=== PATIENT | female | born 1955 | race Two or more races ===

== ENCOUNTER → 2024-10-06 | Outpatient (CLI) | payer MEDICARE, MEDICAID, SELFPAY ==
[2024-10-06 08:58] LABS: Glucose Estimated Average 272 mg/dL (80-131); Hemoglobin A1C 11.1 % Hgb (4.8-6.0)
[2024-10-06 09:05] LABS: Basophils % (Auto) 0 % (0-2.5); Eosinophils # (Auto) 0.1 Thou/mm3 (0.0-0.5); Eosinophils % (Auto) 1 % (0-10); Hematocrit 40.9 % (36.0-46.0); Hemoglobin 14.1 g/dL (12.0-16.0); Immature Granulocytes % (Auto) 0 % (0-0); Immature Granulocytes Auto 0.01 Thou/mm3 (0.00-0.00); Lymphocytes # (Auto) 2.6 Thou/mm3 (1.0-4.8); Lymphocytes % (Auto) 48 % (10-50); Mean Corpuscular HGB Conc 34.5 g/dl (31.0-37.0); Mean Corpuscular Hemoglobin 31.8 pg (25.0-35.0); Mean Corpuscular Volume 92 fL (80-100); Monocytes # (Auto) 0.4 Thou/mm3 (0.0-0.8); Monocytes % (Auto) 7 % (0-12); Neutrophils # (Auto) 2.4 Thou/mm3 (1.8-7.7); Neutrophils % (Auto) 43 % (37-80); Nucleated Red Blood Cell % 0 /100 WBC (0); Platelet Count 164 Thou/mm3 (140-440); RDW Standard Deviation 43.1 fL (36.4-46.3); Red Blood Count 4.44 Miln/mm3 (4.00-5.20); White Blood Count 5.5 Thou/mm3 (3.6-11.0)
[2024-10-06 09:19] LABS: Alanine Aminotransferase 20 U/L (10-49); Albumin, Serum 4.1 gm/dL (3.4-4.8); Albumin/Globulin Ratio 1.9 (1.2-2.2); Alkaline Phosphatase 50 U/L (46-116); Anion Gap 9 (7-16); Aspartate Amino Transferase 15 U/L (0-34); BUN/Creatinine Ratio 20 Ratio (12-20); Blood Urea Nitrogen 12 mg/dL (9-23); Calcium 8.9 mg/dL (8.3-10.6); Calcium (Corrected) 8.9 mg/dL (8.5-10.1); Carbon Dioxide 28.7 mMol/L (20.0-31.0); Chloride 102 mMol/L (98-107); Creatinine (Component) 0.6 mg/dL (0.6-1.3); Globulin 2.2 gm/dL (2.3-3.5); Glucose 214 mg/dL (74-106); Osmolality,Calculated 285 (275-295); Sodium 140 mMol/L (136-145); Total Protein 6.3 gm/dL (5.7-8.2); eGFR > 60 See Note
== END | disposition home or self-care (01) ==
PROVIDERS: PCP Nurse Practitioner Family; Referring Provider Nurse Practitioner Family; Visit Provider Nurse Practitioner Family
DX: E11.65 Type 2 diabetes mellitus with hyperglycemia (principal)
CPT/HCPCS: 36415; 80053; 83036; 85025

== ENCOUNTER → 2024-10-20 | Outpatient (CLI) | payer MEDICARE, MEDICAID, SELFPAY ==
--- NOTE | 2024-10-20 10:46 | XR_ITS ---
Examination: PA lateral chest 2 views TECHNIQUE: Upright PA lateral chest 2 views Exam date and time: Every 2024 110 hours INDICATIONS: Coughing shortness of breath beginning 8 days ago. FINDINGS: No significant cardiac enlargement No pneumonia or pulmonary edema IMPRESSION: No pneumonia identified
== END | disposition home or self-care (01) ==
LOC: CDIM 10:40
PROVIDERS: Referring Provider Nurse Practitioner Family; Visit Provider Nurse Practitioner Family
DX: R05.9 Cough, unspecified (principal); R06.02 Shortness of breath
CPT/HCPCS: 71046

== ENCOUNTER → 2025-01-04 | Outpatient (CLI) | payer MEDICARE, MEDICAID, SELFPAY ==
[2025-01-04 13:01] LABS: Hepatitis C Antibody Non Reactive (Non React)
== END | disposition home or self-care (01) ==
LOC: COPL 10:08
PROVIDERS: PCP Family Medicine; Referring Provider Nurse Practitioner Family; Visit Provider Nurse Practitioner Family
DX: Z11.59 Encounter for screening for other viral diseases (principal)
CPT/HCPCS: 36415; 86803

== ENCOUNTER 2025-01-05 02:32 | Emergency (ER) | payer MEDICARE, MEDICAID, SELFPAY ==
[2025-01-05 02:33] VITALS: BMI 23.8
[2025-01-05 02:54] VITALS: BP 174/82; PULSE 72; RESP 18; TEMP 36.9; O2SAT 97
--- NOTE | 2025-01-05 03:08 | XR_ITS ---
EXAMINATION: Ankle, left 3 views . Technique: Ankle AP, oblique, lateral 3 views Date and time of exam: January 05, 2025 0322 hrs. Indications: Patient fell today with injury to the ankle, ankle pain. Findings: Suspicious for acute nondisplaced fractures distal tibia on the medial side No ankle dislocation Severe osteopenia Impression: Recommend CT scan ankle without contrast follow-up to exclude nondisplaced fractures distal tibia
--- NOTE | 2025-01-05 03:10 | PD.EDANKLE ---
Lower Extremity Injury RME/HPI General Chief Complaint: Ankle/Foot Injury Stated Complaint: L ANKLE PAIN Time Seen by Provider: 01/05/25 02:39 Arrival date/time: 01/05/25 02:32 69 year old female present to emergency room with c/o f left ankle injury today. LOCATION: ankle SEVERITY: Symptoms are described as being severe with limitations on activities of daily living QUALITY: Symptoms are described as being dull or achy CONTEXT: twisted ankle causing injury DURATION/TIMING: The symptoms started approximately 1 day ago and have been constant this then. ASSOCIATED SYMPTOMS: The patient is unable to identify any other associated symptoms. MODIFYING FACTORS: The patient is unable to identify any alleviating or aggravating symptoms. PERTINENT ROS: no fevers, no headache, no neck or chest pain, no unexplained nausea or vomiting, no focal neurological deficits REVIEW OF SYSTEMS: See History of Present Illness - with the exception of those mentioned in the history of present illness, all other systems reviewed and reported as negative GENERAL: In general the patient is awake, interactive, in an emergency department gurney. HEAD/EYES/EARS/NOSE/THROAT: normo-cephalic, atraumatic, mucus membranes are moist, anicteric, palpebral conjunctiva is pink, trachea is midline. NEUROLOGICAL: cranio-facial features are symmetric, moves all four extremities equally without obvious limitations or weakness. EXTREMITY: left lateral ankle tenderness and mild swelling no foot/posterior fib tenderness, no achillies tenderness, no tenderness to palpation over the long bones or large joints of the bilateral upper extremities, no joint swelling, no joint erythema, no unilateral leg swelling and no peripheral edema. SKIN: warm, dry, well-perfused, no jaundice, no rash, no telangiectasias or petechia. PSYCH: calm, cooperative, no evidence of psychosis or agitation Related Data Home Medications ?Medication ?Instructions ?Recorded ?Confirmed atorvastatin 20 mg tablet (Lipitor) 20 mg PO HS #0 tabs 08/28/16 06/09/24 sitagliptin phosphate 50 1 tab PO BIDWM #0 tabs 08/28/16 06/09/24 mg-metformin 1,000 mg tablet (Janumet) folic acid 1 mg tablet 1 tab PO QDAY ##90 08/30/16 06/09/24 metoprolol tartrate 100 mg tablet 100 mg PO QDAY ##180 08/30/16 06/09/24 montelukast 10 mg tablet 10 mg PO QDAY ##90 08/30/16 06/09/24 levothyroxine 50 mcg tablet 50 mcg PO QDAY 06/20/20 06/09/24 albuterol sulfate 90 mcg/actuation 2 puff inhalation Q6H PRN sob 11/17/20 06/09/24 aerosol inhaler (Ventolin HFA) glipizide 10 mg tablet 10 mg PO BID 11/17/20 06/09/24 ferrous sulfate 325 mg (65 mg 325 mg PO BID 11/15/22 06/09/24 iron) tablet losartan 50 mg-hydrochlorothiazide 1 tab PO QDAY 11/15/22 06/09/24 12.5 mg tablet Previous Rx's ?Medication ?Instructions ?Recorded meloxicam 7.5 mg tablet 7.5 mg PO QDAY #45 tabs 12/10/23 Allergies Allergy/AdvReac Type Severity Reaction Status Date / Time NKA* Allergy Uncoded 01/05/25 02:35 Course Course Course Narrative: Presentation consistent with ankle strain/sprain. Per [facility] Rules, acute fx could not ruled out so xrays were obtained.? Above radiographs orders without evidence of acute fracture. Provided RAY wrapping, crutches. Also provided prescription for Lortab to use as needed for pain. Patient may also use ibuprofen as needed for pain. Follow up with primary physician or sports medicine clinic if continued pain. Return to ED if pain uncontrolled, neurovascular change, or other concerns. xray: no acute findings, wet read, will be overead in the morning.? Plan:? ? Discharge from ED Wear air cast? as needed Crutches, weight bearing as tolerated Patient instructed on Rest, Ice, Compression, Elevation Follow up with PCP or Sports Medicine? Informed to return to emergency department if has new or worsening symptoms. Expressed understanding of and agreement with plan and all questions answered. Quality Measures none Orders Category Date Time Status ray wrap [Splint / Immobilizer] STAT Care 01/05/25 03:34 Active XR ankle comp LT min 3V Stat Exams 01/05/25 03:08 Taken Vital Signs Vital signs: Vital Signs Temperature 98.5 F 01/05/25 02:54 Pulse Rate 72 01/05/25 02:54 Respiratory Rate 18 01/05/25 02:54 Blood Pressure 174/82 H 01/05/25 02:54 Pulse Oximetry (%) 97 01/05/25 02:54 Oxygen Delivery Method Room Air 01/05/25 02:54 Extremity Injury, Lower Patient data External records reviewed:: [facility] previous records Clinical information provided by:: patient Social determinants that could affect healthcare access:: none Patient has the following chronic illnesses:: as stated in chart How is presenting disease/condition affected by chronic disease/condition?: uneffected by Evaluation data The following diagnostics were reviewed and interpreted by me:: radiology exam(s) Lab and/or radiology exams considered but not ordered:: na Interpretation Summary: as stated in course Medications / Prescriptions Medications or Prescriptions considered but not ordered:: n/a Medication administrations:: na Consultations Consultation(s) initiated? (list below): No Diagnosis Most likely diagnosis given after review of the tests above:: ankle sprain Admission Indicated Admission indicated?: not indicated Admission Request Was there a request for admission?: No Disposition Plan Disposition Plan: Discharge Discharge Attestation Discharge Attestation: The patient and all family members were given an opportunity to ask questions and understood the discharge instructions. Discharge instructions specifically effects, indications for sooner follow up or return to the emergency department, and the expected course of current diagnosis. Patient condition: Stable Discharge Plan Plan Patient Disposition: HOME (Self Care) Prescriptions/Referrals Prescriptions/Med Rec: No Action losartan-hydrochlorothiazide 50-12.5 mg tablet 1 tab PO QDAY ferrous sulfate 325 mg (65 mg iron) tablet 325 mg PO BID meloxicam 7.5 mg tablet 7.5 mg PO QDAY Qty: 45 3RF atorvastatin [Lipitor] 20 MG tablet 20 mg PO HS Qty: 0 Janumet 50-1,000 mg Tablet 1 tab PO BIDWM Qty: 0 metoprolol tartrate 100 MG tablet 100 mg PO QDAY Qty: 180 folic acid 1 MG tablet 1 tab PO QDAY Qty: 90 montelukast 10 mg Tablet 10 mg PO QDAY Qty: 90 levothyroxine 50 mcg tablet 50 mcg PO QDAY glipizide 10 mg tablet 10 mg PO BID albuterol sulfate [Ventolin HFA] 90 mcg/actuation Hfa Aerosol Inhaler 2 puff INHALATION Q6H PRN (Reason: sob) Problem List Clinical Impression: Sprain of ankle Patient/Caregiver Discharge Instructions Education Materials: ED Ankle Sprain (Adult) Print Language: Divehi Stand Alone Forms: [facility] Award Info., Patient Portal Info Letter
[2025-01-05] MEDS: IBUPROFEN TAB 600 MG TABLET PO (04:14)
--- NOTE | 2025-01-05 04:37 | PC.NURSE ---
Pt dc'd and had opportunity to speak with PA prior to DC. Pt expressed frustration that we do not have a walker for her to go home with. Pt also saying she has no one to help her at her house since her son works nights and sleeps during the day. Educated pt on hospital resources and why we cannot provide her with a walker. Offered to consult social scientist for pt but she declined. Had powerhouse oiler Jodie speak to pt as well.
--- NOTE | 2025-01-05 05:12 | PC.NURSE ---
Pt choosing to wait in lobby at this time. Encouraged pt to alert staff members if she needs social service manager or any assistance in getting home.
--- NOTE | 2025-01-05 06:13 | PC.NURSE ---
Pt's son came to ER to pick her up.
== END 2025-01-05 06:14 | disposition home or self-care (01) ==
LOC: SERX 04:26
PROVIDERS: Emergency Provider Emergency Medicine
DX: S93.402A Sprain of unspecified ligament of left ankle, initial encounter (principal); X50.1XXA Overexertion from prolonged static or awkward postures, initial encounter
CPT/HCPCS: 73610; 99283; A9270

== ENCOUNTER → 2025-01-06 | Outpatient (CLI) | payer MEDICARE, MEDICAID, SELFPAY ==
--- NOTE | 2025-01-06 11:48 | XR_ITS ---
Examination: CT left ankle, without contrast. 2-D sagittal reconstructions. 2-D coronal reconstructions. 3-D reconstructions. Date and time of exam:January 06, 2025 1233 hours INDICATIONS: Patient fell January 05, 2025 with injury to the ankle, ankle pain CTDI: vol (mGy):5.28 DLP: (mGycm):114 Technique: Multiple 1.25 mm axial sections of the left ankle without intravenous contrast have been obtained. 2-D sagittal and coronal reconstructions have been obtained. 3-D reconstructions have been obtained. Low dose protocols were performed. One or more of the following dose reduction techniques were used; automated exposure control, adjustment of the mA and/or KV according to patient size, use of iterative reconstruction technique. Findings: Small acute chip fractures off the fibular tip Distal tibia intact No ankle dislocation Talus calcaneus intact Acute fracture also base of the fifth metatarsal, mildly displaced 9 mm fracture fragment IMPRESSION: Small acute chip fractures off the fibular tip Acute mildly displaced fracture base fifth metatarsal
== END | disposition home or self-care (01) ==
PROVIDERS: PCP Nurse Practitioner Family; Referring Provider Nurse Practitioner Family; Visit Provider Nurse Practitioner Family
DX: S82.492A Other fracture of shaft of left fibula, initial encounter for closed fracture (principal); S92.352A Displaced fracture of fifth metatarsal bone, left foot, initial encounter for closed fracture; W19.XXXA Unspecified fall, initial encounter
CPT/HCPCS: 73700

== ENCOUNTER 2025-02-16 09:25 | Outpatient (AMB) | payer MEDICARE, MEDICAID, SELFPAY ==
[2025-02-16 09:48] VITALS: BP 172/82; PULSE 62; RESP 18; TEMP 36.5; O2SAT 91; BMI 24.5
--- NOTE | 2025-02-16 09:48 | PD.ORTHCLVIS ---
Vital signs 02/16/25 09:48 Height 1.57 m Height Method Stated Weight 60.328 kg Weight Measurement Method Standing Scale BMI 24.5 BP 172/82 H Blood Pressure Source Automatic Cuff Blood Pressure Location Left Upper Arm Position Sitting Respiration 18 Pulse 62 Pulse Source Monitor Temp 97.7 F Temp Source Temporal Artery Scan Pulse Oximetry (%) 91 L Oxygen Delivery Method Room Air Med/Allergies Allergies & Medications Allergies NKA* Allergy (Uncoded 02/16/25 09:49) Medication Reconciliation atorvastatin 20 mg tablet (Lipitor) 20 mg PO HS #0 tabs 08/28/16 [History Confirmed 02/16/25] sitagliptin phosphate 50 mg-metformin 1,000 mg tablet (Janumet) 1 tab PO BIDWM #0 tabs 08/28/16 [History Confirmed 02/16/25] folic acid 1 mg tablet 1 tab PO QDAY ##90 08/30/16 [History Confirmed 02/16/25] metoprolol tartrate 100 mg tablet 100 mg PO QDAY ##180 08/30/16 [History Confirmed 02/16/25] montelukast 10 mg tablet 10 mg PO QDAY ##90 08/30/16 [History Confirmed 02/16/25] levothyroxine 50 mcg tablet 50 mcg PO QDAY 06/20/20 [History Confirmed 02/16/25] albuterol sulfate 90 mcg/actuation aerosol inhaler (Ventolin HFA) 2 puff inhalation Q6H PRN sob 11/17/20 [History Confirmed 02/16/25] glipizide 10 mg tablet 10 mg PO BID 11/17/20 [History Confirmed 02/16/25] ferrous sulfate 325 mg (65 mg iron) tablet 325 mg PO BID 11/15/22 [History Confirmed 02/16/25] losartan 50 mg-hydrochlorothiazide 12.5 mg tablet 1 tab PO QDAY 11/15/22 [History Confirmed 02/16/25] meloxicam 7.5 mg tablet 7.5 mg PO QDAY #45 tabs 02/16/25 [Rx] Exam Exam Patient is in no acute distress and is cooperative with the examination today. Breathing is nonlabored. Patient has a normal mood and affect. The patient has a gait that is [nonantalgic] Bilateral extremities were evaluated and demonstrates sensation intact to light touch. Palpable pedal pulses are present. No significant edema is present. Bilateral hips were examined. The patient has no pain with log roll of the hips. Internal rotation to 30 degrees and external rotation to 30 degrees is painless. Negative FADIR. Right knee was examined today. The right knee is in reasonable alignment. Range of motion from 0-120 degrees. Knee is stable to varus and valgus as well as AP translation with <5mm. Patient has a negative McMurrays. There is no pain with patellofemoral compression and no crepitus noted. The knee is nontender to palpation. Left knee was examined today. The left knee is in [neutral] alignment. Range of motion from [0-120] degrees. Knee is stable to varus and valgus as well as AP translation with <5mm. Patient has a [negative] McMurrays. There is [no] pain with patellofemoral compression and [no] crepitus noted. The knee is [nontender] to palpation [diffusely]. X-rays demonstrate minimal joint space narrowing osteoarthritis. The patient also has an MRI. This demonstrates moderate thinning of her cartilage. There is also degenerative meniscal tear Assessment and Plan Problem List (1) Unilateral primary osteoarthritis, left knee: Status: Acute Plan: Patient is a pleasant 68-year-old female with left knee pain and left knee osteoarthritis. She has done well with nonoperative treatment. We will continue with conservative management. We will continue with meloxicam and will try cortisone injection if the pain does not get better We will see the patient back in approximately 1 week To go over her new x-rays (2) Pain in left knee: Status: Acute Advanced Care Planning Discussion Advance care planning discussed with:: patient and child Office Procedures GNS Level of Care Nursing/Assessment Patient Status: Established Patient Nursing Assessment/Reassesment: Medication Reconciliation, Update PMH in EMR and Vital Signs Coordination of Care: Complex Care and Chronic Disease 1-5, Education Complex Pt/Fam, Consent,records obtained, informed consent, Results/Orders obtained and Staff clarify orders Special Needs: Language special needs Established Patient Charge Established Patient Point Assignment: 95 Established Patient Point Charge: EP Level 3 (80-115) MA Intake Visit Data Collection New Patient or Established: Established Patient (seen at [facility] within 3 years) Reason for Visit:: LEFT KNEE PAIN Seen by Clinical Staff ONLY (RN/MA): No Tax Collector Required: No PCP or OBGYN visit in last 3 months: Yes Hx Now: No Do You Feel Safe at Home: Yes Authorities Contacted: N/A Questionairres Past Medical History Past Medical History Have you ever been diagnosed with any of the following: Neurological Problems Seizures: No Cardiology Problems Hypercholesterolemia: Yes Congestive Heart Failure: No Hypertension: Yes Respiratory Problems Chronic Obstructive Pulmonary Disease (COPD): No Asthma: No Emphysema: No Pneumonia: Yes Tuberculosis: No Smoking: No Smoking Exposure: No Genital/Urinary Problems Renal Disease: No Musculoskeletal Problems Arthritis: Yes Endocrine Problems Diabetes Mellitus Type 1: No Diabetes Mellitus Type 2: Yes Hypothyroidism: Yes Blood Problems Anemia: Yes Other Problems Blood Transfusions: No Anesthesia Reactions: No Cancer: No Surgical History Hysterectomy: Yes (97' WITH ONE OVARY REMOVAL) Subjective Visit Visit for: follow up visit and knee Immunization / Flu Flu Vaccine in the Last 12 Months: No Flu Vaccine Exclusion Criteria: No Exclusion Criteria History of Present Illness Chief complaint: Left knee pain Danielle is a 61-year-old female with left knee pain. This been ongoing for 1 week. She fractured her ankle 2 months ago and is using a boot. She reports that there was significant swelling of the left knee. I did see her a year ago and we have been treating her conservatively. She has done well up until a week ago. Pain Pain level (0-10): 4 Pain duration: COMES AND GOES Pain location: inside (medial) and anterior Pain quality: other (specify) (SWELLING) Associated signs & symptoms: none Ambulatory data Ambulatory device: other (specify) (CRUTCHES/LEFT ANKLE BOOT) Treatments Improvement with previous injections: No Improvement with PT: No Improvement with NSAIDS: no Review of Systems Review of Systems: All systems negative unless otherwise noted in HPI.
--- NOTE | 2025-02-16 10:00 | XR_ITS ---
Examination: AP bilateral knees single view PA left knee lateral left knee axial left knee 3 views TECHNIQUE: Bilateral AP knees standing single view PA standing left knee flexion, standing lateral left knee, axial left knee 3 views total 4 views Date and time: February 16, 2025 at 1012 hours INDICATIONS: Left knee pain and swelling beginning one year ago. FINDINGS: Moderate osteopenia Moderate narrowing medial joint space right knee Mild to moderate narrowing medial joint space left knee Mild to moderate osteoarthritis left patellofemoral joint IMPRESSION: Moderate narrowing medial joint space right knee Mild to moderate narrowing medial joint space left knee Mild to moderate osteoarthritis left patellofemoral joint
== END 2025-02-16 10:01 | disposition home or self-care (01) ==
LOC: HODSRG 09:25
PROVIDERS: PCP Nurse Practitioner Family; Referring Provider Nurse Practitioner Family; Supervising Provider Orthopaedic Surgery Adult Reconstructive Orthopaedic Surgery; Visit Provider Orthopaedic Surgery Adult Reconstructive Orthopaedic Surgery
DX: M17.12 Unilateral primary osteoarthritis, left knee (principal); M25.562 Pain in left knee; I10 Essential (primary) hypertension; E78.00 Pure hypercholesterolemia, unspecified; E11.9 Type 2 diabetes mellitus without complications; E03.9 Hypothyroidism, unspecified
CPT/HCPCS: 73564; 99213; G0463

== ENCOUNTER → 2025-02-24 | Outpatient (CLI) | payer MEDICARE, MEDICAID, SELFPAY ==
--- NOTE | 2025-02-24 09:30 | XR_ITS ---
Examination: Screening digital mammography, bilateral Computer aided detection 3-D breast Tomosynthesis, bilateral Date and time of exam: February 24, 2025 0918 hours Compared to mammograms dating to December 16, 2020 Indication: Screening Technique: Nonmagnified MLO, CC views of the breasts to been obtained, reconstructed from 3-D Tomosynthesis images. R2 computer aided detection program utilized for evaluation of suspicious masses and/or abnormal calcifications. 3-D Tomosynthesis images obtained. Findings: The breasts are heterogeneously dense, which may obscure small masses Breast biopsy marker 12:00 position right breast 6 mm nodule slightly outer and upper right breast Impression: BI-RADS Category 0: Incomplete: Need additional imaging evaluation Recommend follow-up spot tomographic views of 6 mm nodule outer upper right breast as well as right breast sonography to complete the workup.
== END | disposition home or self-care (01) ==
LOC: CDIM 09:06
PROVIDERS: Referring Provider Nurse Practitioner Family; Visit Provider Nurse Practitioner Family
DX: Z12.31 Encounter for screening mammogram for malignant neoplasm of breast (principal); R92.333 Mammographic heterogeneous density, bilateral breasts; N63.11 Unspecified lump in the right breast, upper outer quadrant
CPT/HCPCS: 77063; 77067

== ENCOUNTER 2025-02-25 08:55 | Outpatient (AMB) | payer MEDICARE, MEDICAID, SELFPAY ==
[2025-02-25 09:13] VITALS: BP 164/73; PULSE 67; RESP 16; TEMP 36.2; O2SAT 96; BMI 24.5
--- NOTE | 2025-02-25 09:13 | ORTHONT_ITS ---
Vital signs 02/25/25 09:13 Height 1.57 m Height Method Stated Weight 60.328 kg Weight Measurement Method Standing Scale BMI 24.5 BP 164/73 H Blood Pressure Source Automatic Cuff Blood Pressure Location Right Upper Arm Position Sitting Respiration 16 Pulse 67 Pulse Source Monitor Temp 97.1 F Temp Source Temporal Artery Scan Pulse Oximetry (%) 96 Oxygen Delivery Method Room Air Med/Allergies Allergies & Medications Allergies NKA* Allergy (Uncoded 02/25/25 09:14) Medication Reconciliation atorvastatin 20 mg tablet (Lipitor) 20 mg PO HS #0 tabs 08/28/16 [History Confirmed 02/25/25] sitagliptin phosphate 50 mg-metformin 1,000 mg tablet (Janumet) 1 tab PO BIDWM #0 tabs 08/28/16 [History Confirmed 02/25/25] folic acid 1 mg tablet 1 tab PO QDAY ##90 08/30/16 [History Confirmed 02/25/25] metoprolol tartrate 100 mg tablet 100 mg PO QDAY ##180 08/30/16 [History Confirmed 02/25/25] montelukast 10 mg tablet 10 mg PO QDAY ##90 08/30/16 [History Confirmed 02/25/25] levothyroxine 50 mcg tablet 50 mcg PO QDAY 06/20/20 [History Confirmed 02/25/25] albuterol sulfate 90 mcg/actuation aerosol inhaler (Ventolin HFA) 2 puff inhalation Q6H PRN sob 11/17/20 [History Confirmed 02/25/25] glipizide 10 mg tablet 10 mg PO BID 11/17/20 [History Confirmed 02/25/25] ferrous sulfate 325 mg (65 mg iron) tablet 325 mg PO BID 11/15/22 [History Confirmed 02/25/25] losartan 50 mg-hydrochlorothiazide 12.5 mg tablet 1 tab PO QDAY 11/15/22 [History Confirmed 02/25/25] meloxicam 7.5 mg tablet 7.5 mg PO QDAY #45 tabs 02/16/25 [Rx Confirmed 02/25/25] Exam Exam Patient is in no acute distress and is cooperative with the examination today. Breathing is nonlabored. Patient has a normal mood and affect. The patient has a gait that is [nonantalgic] Bilateral extremities were evaluated and demonstrates sensation intact to light touch. Palpable pedal pulses are present. No significant edema is present. Bilateral hips were examined. The patient has no pain with log roll of the hips. Internal rotation to 30 degrees and external rotation to 30 degrees is painless. Negative FADIR. Right knee was examined today. The right knee is in reasonable alignment. Range of motion from 0-120 degrees. Knee is stable to varus and valgus as well as AP translation with <5mm. Patient has a negative McMurrays. There is no pain with patellofemoral compression and no crepitus noted. The knee is nontender to palpation. Left knee was examined today. The left knee is in [neutral] alignment. Range of motion from [0-120] degrees. Knee is stable to varus and valgus as well as AP translation with <5mm. Patient has a [negative] McMurrays. There is [no] pain with patellofemoral compression and [no] crepitus noted. The knee is [nontender] to palpation [diffusely]. X-rays demonstrate minimal joint space narrowing osteoarthritis. The patient also has an MRI. This demonstrates moderate thinning of her cartilage. There is also degenerative meniscal tear Assessment and Plan Problem List (1) Unilateral primary osteoarthritis, left knee: Status: Acute Plan: Patient is a pleasant 68-year-old female with left knee pain and left knee osteoarthritis. She has done well with nonoperative treatment. We will continue with conservative management. We will continue with meloxicam and will try cortisone injection if the pain does not get better She will call me if she gets pain in the left knee (2) Pain in left knee: Status: Acute Advanced Care Planning Discussion Advance care planning discussed with:: patient Office Procedures GNS Level of Care Nursing/Assessment Patient Status: Established Patient Nursing Assessment/Reassesment: Medication Reconciliation, Update PMH in EMR and Vital Signs Coordination of Care: Complex Care and Chronic Disease 1-5, Education Complex Pt/Fam, Consent,records obtained, informed consent, Results/Orders obtained and Staff clarify orders Special Needs: Language special needs (ENGLISH ) Established Patient Charge Established Patient Point Assignment: 95 Established Patient Point Charge: EP Level 3 (80-115) MA Intake Visit Data Collection New Patient or Established: Established Patient (seen at [facility] within 3 years) Reason for Visit:: LEFT KNEE XRAY RESULT Seen by Clinical Staff ONLY (RN/MA): No Senior Credit Officer Required: Yes PCP or OBGYN visit in last 3 months: Yes Hx Now: No Do You Feel Safe at Home: Yes Authorities Contacted: N/A Questionairres Past Medical History Past Medical History Have you ever been diagnosed with any of the following: Neurological Problems Seizures: No Cardiology Problems Hypercholesterolemia: Yes Congestive Heart Failure: No Hypertension: Yes Respiratory Problems Chronic Obstructive Pulmonary Disease (COPD): No Asthma: No Emphysema: No Pneumonia: Yes Tuberculosis: No Smoking: No Smoking Exposure: No Genital/Urinary Problems Renal Disease: No Musculoskeletal Problems Arthritis: Yes Endocrine Problems Diabetes Mellitus Type 1: No Diabetes Mellitus Type 2: Yes Hypothyroidism: Yes Blood Problems Anemia: Yes Other Problems Blood Transfusions: No Anesthesia Reactions: No Cancer: No Surgical History Hysterectomy: Yes (97' WITH ONE OVARY REMOVAL) Subjective Visit Visit for: follow up visit and knee (LEFT KNEE ) Immunization / Flu Flu Vaccine in the Last 12 Months: Yes Flu Vaccine Exclusion Criteria: Already Received History of Present Illness Chief complaint: Left knee pain Danielle is a 61-year-old female with left knee pain. This been ongoing for 1 week. She fractured her ankle 2 months ago and is using a boot. She reports that there was significant swelling of the left knee. I did see her a year ago and we have been treating her conservatively. She reports the pain is improtving and does not want an injection today Personal History Red flag PMH: none Pain Pain level (0-10): 6 Pain duration: 3 WEEKS Pain location: anterior Pain quality: dull and aching Pain timing: increases with activity Associated signs & symptoms: none Ambulatory data Ambulatory device: other (specify) (CRUTCHES) Walking distance (minutes): 0 Treatments Number of previous injections: 0 Improvement with previous injections: No Number of Physical Therapy sessions: 0 Improvement with PT: No Improvement with NSAIDS: n/a Review of Systems Review of Systems: All systems negative unless otherwise noted in HPI.
== END 2025-02-25 09:26 | disposition home or self-care (01) ==
LOC: HODSRG 08:55
PROVIDERS: PCP Nurse Practitioner Family; Referring Provider Nurse Practitioner Family; Supervising Provider Orthopaedic Surgery Adult Reconstructive Orthopaedic Surgery; Visit Provider Orthopaedic Surgery Adult Reconstructive Orthopaedic Surgery
DX: M17.12 Unilateral primary osteoarthritis, left knee (principal); M25.562 Pain in left knee; I10 Essential (primary) hypertension; E78.00 Pure hypercholesterolemia, unspecified; E11.9 Type 2 diabetes mellitus without complications; E03.9 Hypothyroidism, unspecified
CPT/HCPCS: 99213; G0463

== ENCOUNTER → 2025-04-26 | Outpatient (CLI) | payer MEDICARE, MEDICAID, SELFPAY ==
--- NOTE | 2025-04-26 09:37 | XR_ITS ---
Examination: Breast ultrasound, unilateral, right Date and time of exam: April 26, 2025 0945 hours INDICATIONS: Mammogram 06/26/2025 6 mm nodule outer upper right breast Technique: Real-time yao scale ultrasonographic imaging performed right breast including all 4 quadrants as well as nipple retroareolar and axillary region. Findings: 1:00 nodule circumscribed 6 x 6 mm IMPRESSION: BI-RADS Category 3: Probably benign findings One additional 6 month right breast sonogram follow-up needed to document stability of 1:00 nodule right breast
--- NOTE | 2025-04-26 09:39 | XR_ITS ---
Examination: Diagnostic digital mammography, unilateral, right Computer aided detection 3-D breast Tomosynthesis, unilateral Date and time of exam: April 26, 2025 1001 hours INDICATIONS: Mammogram February 24, 2025 6 mm nodule outer upper right breast separate from the breast biopsy marker Technique: Nonmagnified MLO, CC views of the right breast have been obtained, reconstructed from 3-D Tomosynthesis images. R2 computer aided detection program utilized for evaluation of suspicious masses and/or abnormal calcifications. 3-D Tomosynthesis images obtained. Findings: The breast is heterogeneously dense, which may obscure small masses No suspicious nodule is noted on the current spot compression views Please see the right breast sonogram report and recommendations today Impression: BI-RADS category 2: Benign findings Recommend yearly follow-up mammography
== END | disposition home or self-care (01) ==
PROVIDERS: PCP Nurse Practitioner Family; Referring Provider Nurse Practitioner Family; Visit Provider Nurse Practitioner Family
DX: R92.321 Mammographic fibroglandular density, right breast (principal); N63.12 Unspecified lump in the right breast, upper inner quadrant
CPT/HCPCS: 76641; 77061; 77065; G0279

== ENCOUNTER 2025-05-20 08:42 | Emergency (ER) | payer MEDICARE, MEDICAID, SELFPAY ==
[2025-05-20 08:44] VITALS: BMI 22.8
[2025-05-20 09:01] VITALS: BP 221/95; PULSE 78; RESP 18; TEMP 36.7; O2SAT 95
--- NOTE | 2025-05-20 09:02 | XR_ITS ---
Examination: CTA carotids with intravenous contrast CTA brain, head with intravenous contrast. 2-D sagittal, coronal reconstructions. 3-D reconstructions. Date and time: May 20, 2025 at 0915 hours INDICATIONS:: Altered mental status today, stroke alert CTDI: vol (mGy) 17.7 DLP: (mGycm) 139 Technique: Multiple CTA axial brain, head carotid images post intravenous contrast injection 75 cc, Isovue-370. 2-D sagittal, coronal reconstructions. 3-D reconstructions, 3-D post processing including vascular maximum intensity projection images. Low dose protocols were performed. One or more of the following dose reduction techniques were used; automated exposure control, adjustment of the mA and/or KV according to patient size, use of iterative reconstruction technique. Findings: No significant common carotid carotid bifurcation or internal carotid artery stenoses Dominant left vertebral artery with no critical stenoses in the neck Large hemorrhage in the posterior left parietal lobe again noted with surrounding edema Intracranial vertebral arteries basilar artery posterior cerebral branches fill with no occlusions Juxtasellar supraclinoid portions internal carotid arteries M1 segments middle cerebral arteries middle cerebral artery trifurcation vessels and anterior cerebral arteries fill with no large vessel occlusions IMPRESSION: No significant neck arterial stenoses No cerebral large vessel arterial occlusions Large hemorrhage again noted posterior left parietal lobe
--- NOTE | 2025-05-20 09:02 | XR_ITS ---
Examination: CT brain head without contrast. 2-D sagittal coronal reconstructions Date and time of exam:May 20, 2025 at 0906 hours INDICATIONS: Stroke alert, onset focal neurologic deficit today CTDI: vol (mGy):42.3 DLP: (mGycm):796 Technique: Multiple CT axial sections of the brain have been obtained, 5 mm slice thickness. Contrast has not been administered. 2-D sagittal, coronal reconstructions have been obtained Low dose protocols were performed. One or more of the following dose reduction techniques were used; automated exposure control, adjustment of the mA and/or KV according to patient size, use of iterative reconstruction technique. Findings: Large, 33 x 35 mm acute hemorrhage in the posterior left parietal lobe with significant surrounding edema Ventricles are not enlarged No midline shift of the ventricles. Fourth ventricle is midline Cranial vault intact IMPRESSION: Large acute hemorrhage in the posterior left parietal lobe with significant surrounding edema
--- NOTE | 2025-05-20 09:02 | XR_ITS ---
Examination: AP chest single view Technique one AP portable upright chest single view Date and time: May 20, 2025 0931 hours INDICATIONS: Stroke alert today. FINDINGS: Normal heart size. No aspiration pneumonia. Prominent osteopenia. Reduced inspiration. IMPRESSION: Poor inspiratory effort chest x-ray No aspiration pneumonia
--- NOTE | 2025-05-20 09:02 | EKG_ITS ---
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
--- NOTE | 2025-05-20 09:05 | PC.NURSE ---
PT ALSO HAD TROUBLE CONPREHENDING WHEN ASKED TO WRITE NAME ON E.D. CONSENT AND HAD TO BE INSTRUCTED MULTIPLE TIMES
[2025-05-20 09:19] VITALS: PULSE 82
--- NOTE | 2025-05-20 09:26 | ESCONSULT_ITS ---
Tele Neuro Consultation Consultation Date 05/20/25 Most Recent Vital Signs Last Vital Signs Temp 98.1 F 05/20/25 09:01 Pulse 82 05/20/25 09:19 Resp 18 05/20/25 09:01 BP 221/95 H 05/20/25 09:01 Pulse Ox 95 05/20/25 09:01 O2 Del Method Room Air 05/20/25 09:01 Consultation Narrative [facility] Tele[facility]rology [facility] Patient Name:???Danielle Kahn Date of :???1955 Identification Number:??? Date of Service:???05/20/2025 09:00:10 Diagnosis:?I63.89 - Cerebrovascular accident (CVA) due to other mechanism ([facility]LY [facility] [place]) Impression: This is a 70 yo F w a PMHX of DM, HTN, thyroid disease, who presents to the ED with the acute onset of WILLIS, AMS, blurred vision in L eye. She was last known to be at baseline at 11PM when going to bed last night. Woke up 3AM with WILLIS. Went back to bed, but woke back up at 7AM with the confusion and the blurred vision in the L eye. On arrival to the ED her symptoms remain persistent. BP was found to be 214 systolic. Physical exam is surprisingly normal Labs pending Imaging with CTH showing L cortical IPH -NSGY consult -Keppra 1g load, then 500mg BID as maintenance -CTA head and neck -BP 140/90 and below -MRI brain WITH and wo contrast -No AP or AC -CTH at 8 hours to make sure bleed not expanding -Labs for: UA, Utox, thiamine, ammonia, RPR, TSH, B12, ABG, alcohol, A1C, CBC, CMP, Lipids, LFTs, CPK, lactic acid -SCDs Recommendation: Metrics: Last Known Well: 05/19/2025 23:00:00 Dispatch Time: 05/20/2025 09:00:10 Arrival Time: 05/20/2025 08:42:00 Initial Response Time: 05/20/2025 09:10:37Symptoms: WILLIS, AMS, blurred vision in L eye. Initial patient interaction: 05/20/2025 09:18:41 NIHSS Assessment Completed: 05/20/2025 09:20:12Patient is not a candidate for Thrombolytic. Thrombolytic Medical Decision: 05/20/2025 09:20:14Patient was not deemed candidate for Thrombolytic because of following reasons: Current intracranial hemorrhage . CT Head: I personally reviewed all the CT images that were available to me and it showed: pending read by radsybil Primary Provider Notified of Diagnostic Impression and Management Plan on: 05/20/2025 09:26:25 History of Present Illness:Patient is a 70 year old Female. Patient was brought by EMS for symptoms of WILLIS, AMS, blurred vision in L eye. This is a 70 yo F w a PMHX of DM, HTN, thyroid disease, who presents to the ED with the acute onset of WILLIS, AMS, blurred vision in L eye. She was last known to be at baseline at 11PM when going to bed last night. Woke up 3AM with WILLIS. Went back to bed, but woke back up at 7AM with the confusion and the blurred vision in the L eye. On arrival to the ED her symptoms remain persistent. BP was found to be 214 systolic. She was taken for CTH and further evaluation. Decision on whether or not to give pharmacological thrombolysis was made based on indications, contraindications, and patient's disability status and preference. ? Medications: Anticoagulant use:??Unknown Antiplatelet use:?Unknown Reviewed EMR for current medications Allergies:? NKDA Social History: Smoking: No Alcohol Use: No Drug Use: No Family History: There is no family history of premature cerebrovascular disease pertinent to this consultation ROS : 14 Points Review of Systems was performed and was negative except mentioned in HPI. Past Surgical History: There Is No Surgical History Contributory To Today?s Visit ? Examination: BP(214/84),?Pulse(83),?Blood Glucose(251) 1A: Level of Consciousness - Alert; keenly responsive?+ 0 1B: Ask Month and Age - Both Questions Right?+ 0 1C: Blink Eyes & Squeeze Hands - Performs Both Tasks?+ 0 2: Test Horizontal Extraocular Movements - Normal?+ 0 3: Test Visual Prieto - No Visual Loss?+ 0 4: Test Facial Palsy (Use Grimace if Obtunded) - Normal symmetry?+ 0 5A: Test Left Arm Motor Drift - No Drift for 10 Seconds?+ 0 5B: Test Right Arm Motor Drift - No Drift for 10 Seconds?+ 0 6A: Test Left Leg Motor Drift - No Drift for 5 Seconds?+ 0 6B: Test Right Leg Motor Drift - No Drift for 5 Seconds?+ 0 7: Test Limb Ataxia (FNF/Heel-Miller) - No Ataxia?+ 0 8: Test Sensation - Normal; No sensory loss?+ 0 9: Test Language/Aphasia - Normal; No aphasia?+ 0 10: Test Dysarthria - Normal?+ 0 11: Test Extinction/Inattention - No abnormality?+ 0 NIHSS Score:?0 ICH Score: 1 Bi Coma Score:13-15 (0) Age >= 80:No (0) ICH volume >= 30mL:Yes (+1) Intraventricular hemorrhage:No (0) Infratentorial origin of hemorrhage:No (0) Pre-Morbid Modified Julien Scale: 0 Points = No symptoms at all This consult was conducted in real time using interactive audio and video apurva hnology. Patient was informed of the technology being used for this visit and agreed to proceed. Patient located in hospital and provider located at home/office setting. Due to the immediate potential for life-threatening deterioration due to underlying acute neurologic illness, I spent 35 minutes providing critical care. This time includes time for face to face visit via telemedicine, review of m edical records, imaging studies and discussion of findings with providers, the patient and/or family. Dr Quinton Cardenas [facility] For Inpatient follow-up with [facility] physician please call [facility] at . As we are not an outpatient service for any post hospital discharge needs please contact the hospital for assistance. If you have any questions for the [facility] physicians or need to reconsult for clinical or diagnostic changes please contact us via [facility] at . Signature :Sarah Cardenas ?
[2025-05-20] MEDS: levETIRAcetam INJ 100 MG/ML VIAL 5ML 1000 MG IVP (09:29)
--- NOTE | 2025-05-20 09:33 | PC.CC ---
Addendum entered by Tan Shah RN 05/20/25 10:35: [facility] ETA 1035 Addendum entered by Tan Shah RN 05/20/25 10:35: 1005: [facility] called back with accepting information. Dr. Osullivan is accepting and Dr La is consulting. [facility] contacted and booked. ETA at bedside at 1035. Transfer packet w/ 1 CD and Reach packet given to information services vice president Lanise. Addendum entered by aTn Shah RN 05/20/25 09:51: multiple attempts to connect Dr Kidd with neurosurgeon w/ [facility]. 0949: peer to peer w/ Dr. La completed and he accepted pt. Original Note: 924: Called [facility], transfer request initiated. Peer to peer between Dr. Nikko Griffiths and Dr. Kidd completed. Dr Griffiths stated hospital is impacted and will have to contact the neurosurgeon. TC will call reach out the neurosurgeon accounting consultant and call me back. Clinicals sent 921: Called [facility], spoke to Taryn, she stated send clinials but to call back after CTA is completed and read. 919: received transfer request for Neurosurgery for a large acute hemorrhage left posterior lobe.
[2025-05-20 09:37] LABS: INR 1.1 (0.9-1.3); Partial Thromboplastin Time 23.7 Seconds (22.0-36.0); Prothrombin Time 12.0 Seconds (9.0-12.2)
[2025-05-20 09:39] VITALS: BP 228/106; PULSE 79
[2025-05-20] MEDS: NICARDIPINE/NS 20MG IVPB 20 MG/200 ML BAG 50 MG IV (09:39)
[2025-05-20 09:40] LABS: Alanine Aminotransferase 44 U/L (10-49); Albumin, Serum 4.6 gm/dL (3.4-4.8); Albumin/Globulin Ratio 1.8 (1.2-2.2); Alkaline Phosphatase 83 U/L (46-116); Anion Gap 12 (7-16); Aspartate Amino Transferase 27 U/L (0-34); BUN/Creatinine Ratio 15 Ratio (12-20); Bilirubin,Total 1.3 mg/dL (0.3-1.2); Blood Urea Nitrogen 9 mg/dL (9-23); Calcium 10.0 mg/dL (8.3-10.6); Calcium (Corrected) 10.0 mg/dL (8.5-10.1); Carbon Dioxide 27.6 mMol/L (20.0-31.0); Chloride 99 mMol/L (98-107); Creatinine (Component) 0.6 mg/dL (0.6-1.3); Estimated Creatinine Clearance 70.0 mL/min (>60); Globulin 2.6 gm/dL (2.3-3.5); Glucose 230 mg/dL (74-106); Magnesium 1.2 mg/dL (1.6-2.6); Osmolality,Calculated 283 (275-295); Potassium 3.4 mMol/L (3.4-5.1); Sodium 139 mMol/L (136-145); Total Protein 7.2 gm/dL (5.7-8.2); Troponin I < 0.020 ng/mL (0.0-0.045); eGFR > 60 See Note
[2025-05-20 09:48] LABS: Basophils # (Auto) 0.0 Thou/mm3 (0.0-0.2); Basophils % (Auto) 0 % (0-2.5); Eosinophils # (Auto) 0.1 Thou/mm3 (0.0-0.5); Eosinophils % (Auto) 1 % (0-10); Hematocrit 44.6 % (36.0-46.0); Hemoglobin 15.1 g/dL (12.0-16.0); Immature Granulocytes Auto 0.02 Thou/mm3 (0.00-0.00); Lymphocytes # (Auto) 2.6 Thou/mm3 (1.0-4.8); Lymphocytes % (Auto) 26 % (10-50); Mean Corpuscular HGB Conc 33.9 g/dl (31.0-37.0); Mean Corpuscular Hemoglobin 31.4 pg (25.0-35.0); Mean Corpuscular Volume 93 fL (80-100); Monocytes # (Auto) 0.4 Thou/mm3 (0.0-0.8); Monocytes % (Auto) 4 % (0-12); Neutrophils # (Auto) 6.8 Thou/mm3 (1.8-7.7); Neutrophils % (Auto) 68 % (37-80); Nucleated Red Blood Cell # 0.00 Thou/mm3 (0.00-0.00); Nucleated Red Blood Cell % 0 /100 WBC (0); Platelet Count 185 Thou/mm3 (140-440); RDW Standard Deviation 43.1 fL (36.4-46.3); Red Blood Count 4.81 Miln/mm3 (4.00-5.20); White Blood Count 10.0 Thou/mm3 (3.6-11.0)
[2025-05-20 10:02] VITALS: BP 167/86; PULSE 75; RESP 17; O2SAT 94
[2025-05-20 10:08] LABS: Collection Type, Urine Clean Catch
--- NOTE | 2025-05-20 10:18 | PD.EDNEURO ---
Neuro Symptoms Deficit-RME/HPI General Chief Complaint: Neuro Symptoms/Deficit Stated Complaint: FEELS CONFUSED/TROUBLE SEEING, LKW 2300 YESTERDAY Time Seen by Provider: 05/20/25 09:14 Arrival date/time: 05/20/25 08:42 Limitations: no limitations RME / HPI RME / HPI Narrative: 70 year old female with history of hypertension, diabetes, hypothyroidism presents to the ED for evaluation of headache, confusion, left eye blurred vision today. Patient states she woke up at 03:00 AM and didn't feel right, accompanied by a headache at that time. States she went back to bed and woke up again at 07:00 AM feeling confused with blurred vision to the left eye. Daughter states the patient went to bed at 11PM and was at her usual state of health. Daughter states she saw the patient at 07:00 AM where she noticed the patient was confused and having difficulty ambulating which at baseline she has no problems with. On arrival to ED, patient is hypertensive SBP 214. No recent illness reported. Denies fevers, chills, chest pain, cough, shortness of breath, abdominal pain, n/v/d, or urinary symptoms. Related Data Home Medications ?Medication ?Instructions ?Recorded ?Confirmed atorvastatin 20 mg tablet (Lipitor) 20 mg PO HS #0 tabs 08/28/16 02/25/25 sitagliptin phosphate 50 1 tab PO BIDWM #0 tabs 08/28/16 02/25/25 mg-metformin 1,000 mg tablet (Janumet) folic acid 1 mg tablet 1 tab PO QDAY ##90 08/30/16 02/25/25 metoprolol tartrate 100 mg tablet 100 mg PO QDAY ##180 08/30/16 02/25/25 montelukast 10 mg tablet 10 mg PO QDAY ##90 08/30/16 02/25/25 levothyroxine 50 mcg tablet 50 mcg PO QDAY 06/20/20 02/25/25 albuterol sulfate 90 mcg/actuation 2 puff inhalation Q6H PRN sob 11/17/20 02/25/25 aerosol inhaler (Ventolin HFA) glipizide 10 mg tablet 10 mg PO BID 11/17/20 02/25/25 ferrous sulfate 325 mg (65 mg 325 mg PO BID 11/15/22 02/25/25 iron) tablet losartan 50 mg-hydrochlorothiazide 1 tab PO QDAY 11/15/22 02/25/25 12.5 mg tablet Previous Rx's ?Medication ?Instructions ?Recorded meloxicam 7.5 mg tablet 7.5 mg PO QDAY #45 tabs 02/16/25 Allergies Allergy/AdvReac Type Severity Reaction Status Date / Time No Known Allergies Allergy Verified 05/20/25 08:53 Review of Systems Review of Systems Systems Reviewed: All systems reviewed, normal except as documented Past Medical History Past Medical History CARDIAC: Positive Cardiac Disorders, Hypercholesterolemia and Hypertension RESPIRATORY: Positive Pneumonia MUSCULOSKELETAL: Positive Musculoskeletal Disorders and Arthritis ENDOCRINE: Positive Endocrine Disorders, Diabetes Mellitus Type 2 and Hypothyroidism HEMATOLOGIC: Positive Blood Disorders and Anemia OTHER HISTORY: Positive Falls Surgical History SURGICAL: Positive Hysterectomy (97' WITH ONE OVARY REMOVAL) Social History SMOKING STATUS: Never smoker SECOND HAND EXPOSURE: No 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 ED Exam General Limitations: Present no limitations General appearance: Present alert and in no apparent distress Head Head exam: Present atraumatic, normocephalic and normal inspection Eye Eye exam: Present normal appearance, PERRL and EOMI ENT ENT exam: Present normal exam, normal oropharynx and mucous membranes moist Neck Neck exam: Present normal inspection, full ROM and trachea midline Chest Chest inspection: Present normal inspection and symmetric chest wall rise Respiratory Respiratory exam: Present normal lung sounds bilaterally Cardiovascular Cardiovascular exam: Present regular rate, normal rhythm and normal heart sounds Abdominal Exam Abdominal exam: Present soft and normal bowel sounds Extremities Exam Extremities exam: Present normal inspection and full ROM Back Exam Back exam: Present normal inspection and full ROM Neurological Exam Neurological exam: Present alert, oriented X3 and other (slight left facial droop ) Psychiatric Psychiatric exam: Present normal affect and normal mood Skin Skin exam: Present warm, dry, intact and normal color Course Quality Measures Suspected type of Stroke: Hemmorrhagic Last known well (date): 05/19/25 Last known well (time): 23:00 Tenecteplase given: Reason(s) TPA not given: Symptoms suggest SAH not given stroke Orders Category Date Time Status Bedside Blood Glucose NOW Care 05/20/25 09:02 Completed Structural Metal Fabricator Apprentice NOW Care 05/20/25 09:02 Completed Continuous Pulse Oximetry NOW Care 05/20/25 09:02 Completed EKG (ED ONLY) *Do not use* NOW Care 05/20/25 09:02 Completed Insert IV NOW Care 05/20/25 09:02 Completed NIH Stroke Scale now Care 05/20/25 09:02 Completed NPO NOW Care 05/20/25 09:02 Completed Nurse Swallow Screen x1 Care 05/20/25 09:02 Completed Consult to Neurology / Tele-Neurology Routine Cons 05/20/25 09:02 Active Referral - Living Specialist Stat Cons 05/20/25 09:15 Active Transfer to another facility [Transfer/Discharge] Stat Discharge 05/20/25 09:[address] angio stroke protocol Stat Exams 05/20/25 09:[address] stroke protocol Stat Exams 05/20/25 09:02 Completed EKG (ED Only) Stat Exams 05/20/25 09:02 Draft XR chest 1V portable Stat Exams 05/20/25 09:02 Completed CBC Stat Lab 05/20/25 09:11 Completed Comprehensive Metabolic Panel Stat Lab 05/20/25 09:11 Completed Magnesium Stat Lab 05/20/25 09:11 Completed Partial Thromboplastin Time Stat Lab 05/20/25 09:11 Completed Prothrombin Time with INR Stat Lab 05/20/25 09:11 Completed Troponin I Stat Lab 05/20/25 09:11 Completed Urinalysis, C/S if Indicated Stat Lab 05/20/25 09:52 Completed Nicardipine/Ns 20Mg Ivpb [Cardene Ivpb] Med 05/20/25 09:28 Discontinued 20 mg in 200 ml IV 5 mg/hr levETIRAcetam INJ [Keppra Inj] Med 05/20/25 09:15 Discontinued 1,000 mg IVP X1 ONE Vital Signs Vital signs: Vital Signs Temperature 98.1 F 05/20/25 09:01 Pulse Rate 78 05/20/25 09:01 Respiratory Rate 18 05/20/25 09:01 Blood Pressure 221/95 H 05/20/25 09:01 Pulse Oximetry (%) 95 05/20/25 09:01 Oxygen Delivery Method Room Air 05/20/25 09:01 Pulse ox is 95 on room air which is adequate. Neuro Symptoms / Deficit MDM Narrative MDM Narrative:: Yoanna Carias am scribing for and in the presence of Dr. Kidd. Patient data External records reviewed:: [facility] previous records (I reviewed ED visit on 01/05/2025 ) and EMS form Clinical information provided by:: patient, EMS and family Social determinants that could affect healthcare access:: none Patient has the following chronic illnesses:: hypertension, diabetes, hypothyroidism How is presenting disease/condition affected by chronic disease/condition?: exacerbated by Evaluation data The following diagnostics were reviewed and interpreted by me:: lab results, radiology exam(s) and EKG tracing(s) (10:08 AM NSR, rate 79, left atrial enlargement, nonspecific ST-T wave abnormality ) Lab and/or radiology exams considered but not ordered:: None Interpretation Summary: Ordering Physician: Shamir Kidd MD Date of Service: 05/20/25 Procedure(s): XR chest 1V portable Accession Number(s): [id number] cc: Shamir Kidd MD; Ryan Sterling MD; NO PRIMARY/FAMILY,PHYSICIAN~ Examination: AP chest single view Technique one AP portable upright chest single view Date and time: May 20, 2025 0931 hours INDICATIONS: Stroke alert today. FINDINGS: Normal heart size. No aspiration pneumonia. Prominent osteopenia. Reduced inspiration. IMPRESSION: Poor inspiratory effort chest x-ray No aspiration pneumonia Dictated By: Ryan Sterling MD Signed By: <Electronically signed by Ryan Sterling MD in OV> 05/20/25 1018 Ordering Physician: Shamir Kidd MD Date of Service: 05/20/25 Procedure(s): CT stroke protocol Accession Number(s): [id number] cc: Shamir Kidd MD; Ryan Sterling MD~ Examination: CT brain head without contrast. 2-D sagittal coronal reconstructions Date and time of exam:May 20, 2025 at 0906 hours INDICATIONS: Stroke alert, onset focal neurologic deficit today CTDI: vol (mGy):42.3 DLP: (mGycm):796 Technique: Multiple CT axial sections of the brain have been obtained, 5 mm slice thickness. Contrast has not been administered. 2-D sagittal, coronal reconstructions have been obtained Low dose protocols were performed. One or more of the following dose reduction techniques were used; automated exposure control, adjustment of the mA and/or KV according to patient size, use of iterative reconstruction technique. Findings: Large, 33 x 35 mm acute hemorrhage in the posterior left parietal lobe with significant surrounding edema Ventricles are not enlarged No midline shift of the ventricles. Fourth ventricle is midline Cranial vault intact IMPRESSION: Large acute hemorrhage in the posterior left parietal lobe with significant surrounding edema Dictated By: Ryan Sterling MD Signed By: <Electronically signed by Ryan Sterling MD in OV> 05/20/25 0915 Ordering Physician: Shamir Kidd MD Date of Service: 05/20/25 Procedure(s): CT angio stroke protocol Accession Number(s): [id number] cc: Shamir Kidd MD; Ryan Sterling MD~ Examination: CTA carotids with intravenous contrast CTA brain, head with intravenous contrast. 2-D sagittal, coronal reconstructions. 3-D reconstructions. Date and time: May 20, 2025 at 0915 hours INDICATIONS:: Altered mental status today, stroke alert CTDI: vol (mGy) 17.7 DLP: (mGycm) 139 Technique: Multiple CTA axial brain, head carotid images post intravenous contrast injection 75 cc, Isovue-370. 2-D sagittal, coronal reconstructions. 3-D reconstructions, 3-D post processing including vascular maximum intensity projection images. Low dose protocols were performed. One or more of the following dose reduction techniques were used; automated exposure control, adjustment of the mA and/or KV according to patient size, use of iterative reconstruction technique. Findings: No significant common carotid carotid bifurcation or internal carotid artery stenoses Dominant left vertebral artery with no critical stenoses in the neck Large hemorrhage in the posterior left parietal lobe again noted with surrounding edema Intracranial vertebral arteries basilar artery posterior cerebral branches fill with no occlusions Juxtasellar supraclinoid portions internal carotid arteries M1 segments middle cerebral arteries middle cerebral artery trifurcation vessels and anterior cerebral arteries fill with no large vessel occlusions IMPRESSION: No significant neck arterial stenoses No cerebral large vessel arterial occlusions Large hemorrhage again noted posterior left parietal lobe Dictated By: Ryan Sterling MD Signed By: <Electronically signed by Ryan Sterling MD in OV> 05/20/25 0936 Medications / Prescriptions Medications or Prescriptions considered but not ordered:: None Medication administrations:: Medication Administration History Discontinued Medications Nicardipine/Sodium Chloride (Cardene Ivpb) 20 mg in 200 mls @ 50 mls/hr IV .Q4H PRN; Protocol PRN Reason: PER PROTOCOL Stop: 06/19/25 09:27 Last Titration: 05/20/25 10:00 Dose: 5 mg/hr, 50 mls/hr Documented By: Admin: 05/20/25 09:39 Dose: 5 mg/hr, 50 mls/hr Documented By: EF Levetiracetam (Levetiracetam Inj 100 Mg/Ml Vial 5ml) 1,000 mg IVP X1 ONE Stop: 05/20/25 09:16 Last Admin: 05/20/25 09:29 Dose: 1,000 mg Documented By: EF See above Consultations Consultation(s) initiated? (list below): Yes Consultation #1 (Physician, Specialty, Details): I spoke with teleneurologist Dr. Cardenas, states patient has an acute intracranial hemorrhage Time: 09:26 Consultation #2 (Physician, Specialty, Details): I spoke with transfer nurse at [facility]. Discussed patients PMHx, HPI, ED course, exam findings, labs, and radiology results. Patient was accepted for transfer. Diagnosis Neuro Differential Diagnosis: subarachnoid hemorrhage, cerebrovascular accident and transient cerebral ischemia Most likely diagnosis given after review of the tests above:: Acute hemorrhagic CVA Acute hemorrhage in the posterior left parietal lobe Accelerated hypertension Diabetes Admission Indicated Admission indicated?: not indicated Explain why admission is indicated or not indicated:: txfer for neurosurgery Admission Request Was there a request for admission?: No Disposition Plan Disposition Plan: Transfer Critical Care Time Critical Care Time Critical Care Time: Yes Total Critical Care Time (min.): 45 Attestation: The high probability of sudden, clinically significant deterioration in the patient's condition required the highest level of my preparedness to intervene urgently. The services I provided to this patient were to treat and/or prevent clinically significant deterioration. Services included the following: chart data review, reviewing nursing notes and/or old charts, documentation time, plan consultant collaboration regarding findings and treatment options, medication orders and management, direct patient care, vital sign assessments and ordering, interpreting and reviewing diagnostic studies and lab tests. Aggregate critical care time includes only time during which I was engaged in work directly related to the patient's care, as described above, whether at bedside or elsewhere in the Emergency Department. It did not include time spent performing other reported procedures or the services of residents, students, nurses or physician assistants. Discharge Plan Plan Patient Disposition: [facility] Pt Being Transferred to: [facility] Service Needed for Transfer: Neurosurgery Prescriptions/Referrals Prescriptions/Med Rec: No Action losartan-hydrochlorothiazide 50-12.5 mg tablet 1 tab PO QDAY ferrous sulfate 325 mg (65 mg iron) tablet 325 mg PO BID meloxicam 7.5 mg tablet 7.5 mg PO QDAY Qty: 45 3RF atorvastatin [Lipitor] 20 MG tablet 20 mg PO HS Qty: 0 Janumet 50-1,000 mg Tablet 1 tab PO BIDWM Qty: 0 metoprolol tartrate 100 MG tablet 100 mg PO QDAY Qty: 180 folic acid 1 MG tablet 1 tab PO QDAY Qty: 90 montelukast 10 mg Tablet 10 mg PO QDAY Qty: 90 levothyroxine 50 mcg tablet 50 mcg PO QDAY glipizide 10 mg tablet 10 mg PO BID albuterol sulfate [Ventolin HFA] 90 mcg/actuation Hfa Aerosol Inhaler 2 puff INHALATION Q6H PRN (Reason: sob) Referrals: No Primary/Family,Physician [Primary Care Provider] - In 1 week Problem List Clinical Impression: Hemorrhagic stroke, Left-sided hemorrhagic posterior cerebral circulation infarction, Accelerated hypertension, Diabetes Patient/Caregiver Discharge Instructions Print Language: Chinese Stand Alone Forms: Virginie Award Info., Patient Portal Info Letter
[2025-05-20 10:28] LABS: Bilirubin,Urine Negative (Negative); Blood,Urine Negative (Negative); Clarity,Urine Clear (Clear/Hazy); Color,Urine Colorless (Lt Yel-Yel); Culture Indicated,Urine Not Indicated; Glucose, Urine 4+ (Negative); Ketones,Urine Negative (Negative); Leukocyte Esterase,Urine Negative (Negative); Nitrite,Urine Negative (Negative); PH,Urine 7.5 (5.0-7.0); Protein,Urine Negative (Neg - Trace); RBC,Urine 4 /hpf (0-3); Specific Gravity,Urine 1.032 (1.001-1.035); Squamous Epithelial Cell,Urine 1 /hpf (0-5); Urobilinogen,Urine Negative mg/dL (0.0-1.0); WBC,Urine 1 /hpf (0-5)
--- NOTE | 2025-05-20 10:37 | PC.NURSE ---
report given to naila from reach at bedside
--- NOTE | 2025-05-20 10:43 | PC.NURSE ---
report called via telephone to nurse inman from [facility]
== END 2025-05-20 10:45 | disposition short-term general hospital (02) ==
LOC: SERX 09:56
PROVIDERS: Emergency Provider Family Medicine
DX: I61.9 Nontraumatic intracerebral hemorrhage, unspecified (principal); I10 Essential (primary) hypertension
CPT/HCPCS: 36415; 70450; 70496; 70498; 71045; 80053; 81001; 83735; 84484; 85025; 85610; 85730; 93005; 96365; 96375; 99284; A4649; J1953; J2404; Q9967

== ENCOUNTER 2025-06-08 10:00 | Outpatient (AMB) | payer MEDICARE, MEDICAID, SELFPAY ==
[2025-06-08 10:23] VITALS: BP 114/77; PULSE 67; RESP 18; TEMP 36.4; O2SAT 94; BMI 22.5
--- NOTE | 2025-06-08 10:23 | PD.ORTHCLVIS ---
Vital signs 06/08/25 10:23 Height 1.57 m Height Method Stated Weight 55.48 kg Weight Measurement Method Standing Scale BMI 22.5 BP 114/77 Blood Pressure Source Automatic Cuff Blood Pressure Location Left Upper Arm Position Sitting Respiration 18 Pulse 67 Pulse Source Monitor Temp 97.5 F Temp Source Temporal Artery Scan Pulse Oximetry (%) 94 L Oxygen Delivery Method Room Air Med/Allergies Allergies & Medications Allergies No Known Allergies Allergy (Verified 06/08/25 10:24) Medication Reconciliation atorvastatin 20 mg tablet (Lipitor) 20 mg PO HS #0 tabs 08/28/16 [History Confirmed 06/08/25] sitagliptin phosphate 50 mg-metformin 1,000 mg tablet (Janumet) 1 tab PO BIDWM #0 tabs 08/28/16 [History Confirmed 06/08/25] folic acid 1 mg tablet 1 tab PO QDAY ##90 08/30/16 [History Confirmed 06/08/25] metoprolol tartrate 100 mg tablet 100 mg PO QDAY ##180 08/30/16 [History Confirmed 06/08/25] montelukast 10 mg tablet 10 mg PO QDAY ##90 08/30/16 [History Confirmed 06/08/25] levothyroxine 50 mcg tablet 50 mcg PO QDAY 06/20/20 [History Confirmed 06/08/25] albuterol sulfate 90 mcg/actuation aerosol inhaler (Ventolin HFA) 2 puff inhalation Q6H PRN sob 11/17/20 [History Confirmed 06/08/25] glipizide 10 mg tablet 10 mg PO BID 11/17/20 [History Confirmed 06/08/25] ferrous sulfate 325 mg (65 mg iron) tablet 325 mg PO BID 11/15/22 [History Confirmed 06/08/25] losartan 50 mg-hydrochlorothiazide 12.5 mg tablet 1 tab PO QDAY 11/15/22 [History Confirmed 06/08/25] meloxicam 7.5 mg tablet 7.5 mg PO QDAY #45 tabs 02/16/25 [Rx Confirmed 06/08/25] Exam Exam Patient is in no acute distress and is cooperative with the examination today. Breathing is nonlabored. Patient has a normal mood and affect. The patient has a gait that is [nonantalgic] Bilateral extremities were evaluated and demonstrates sensation intact to light touch. Palpable pedal pulses are present. No significant edema is present. Bilateral hips were examined. The patient has no pain with log roll of the hips. Internal rotation to 30 degrees and external rotation to 30 degrees is painless. Negative FADIR. Right knee was examined today. The right knee is in reasonable alignment. Range of motion from 0-120 degrees. Knee is stable to varus and valgus as well as AP translation with <5mm. Patient has a negative McMurrays. There is no pain with patellofemoral compression and no crepitus noted. The knee is nontender to palpation. Left knee was examined today. The left knee is in [neutral] alignment. Range of motion from [0-120] degrees. Knee is stable to varus and valgus as well as AP translation with <5mm. Patient has a [negative] McMurrays. There is [no] pain with patellofemoral compression and [no] crepitus noted. The knee is [nontender] to palpation [diffusely]. X-rays demonstrate minimal joint space narrowing osteoarthritis. The patient also has an MRI. This demonstrates moderate thinning of her cartilage. There is also degenerative meniscal tear Assessment and Plan Problem List (1) Unilateral primary osteoarthritis, left knee: Status: Acute Plan: Patient is a pleasant 68-year-old female with left knee pain and left knee osteoarthritis. She is status post stroke and has had a recent increase in knee pain since then. She would like to continue with therapy for now. We discussed we can do cortisone injections if the pain worsens (2) Pain in left knee: Status: Acute Advanced Care Planning Discussion Advance care planning discussed with:: patient and child Office Procedures GNS Level of Care Nursing/Assessment Patient Status: Established Patient Nursing Assessment/Reassesment: Medication Reconciliation, Update PMH in EMR and Vital Signs Coordination of Care: Complex Care and Chronic Disease 1-5, Education Complex Pt/Fam, Consent,records obtained, informed consent, Results/Orders obtained and Staff clarify orders Established Patient Charge Established Patient Point Assignment: 95 Established Patient Point Charge: EP Level 3 (80-115) MA Intake Visit Data Collection New Patient or Established: Established Patient (seen at [facility] within 3 years) Reason for Visit:: LEFT KNEE XRAY Seen by Clinical Staff ONLY (RN/MA): No Database Software Technician Required: Yes PCP or OBGYN visit in last 3 months: Yes Hx Now: No Do You Feel Safe at Home: Yes Authorities Contacted: N/A Questionairres Past Medical History Past Medical History Have you ever been diagnosed with any of the following: Neurological Problems Seizures: No Cardiology Problems Hypercholesterolemia: Yes Congestive Heart Failure: No Hypertension: Yes Respiratory Problems Chronic Obstructive Pulmonary Disease (COPD): No Asthma: No Emphysema: No Pneumonia: Yes Tuberculosis: No Smoking: No Smoking Exposure: No Genital/Urinary Problems Renal Disease: No Musculoskeletal Problems Arthritis: Yes Endocrine Problems Diabetes Mellitus Type 1: No Diabetes Mellitus Type 2: Yes Hypothyroidism: Yes Blood Problems Anemia: Yes Other Problems Falls: Yes Blood Transfusions: No Anesthesia Reactions: No Cancer: No Surgical History Hysterectomy: Yes (97' WITH ONE OVARY REMOVAL) Subjective Visit Visit for: follow up visit and knee (LEFT KNEE ) Immunization / Flu Flu Vaccine in the Last 12 Months: Yes Flu Vaccine Exclusion Criteria: Already Received History of Present Illness Chief complaint: Left knee pain Danielle is a 61-year-old female with left knee pain. This been ongoing for 1 week. She fractured her ankle 2 months ago and is using a boot. She reports that there was significant swelling of the left knee. she recently had a stroke and was in the hospital for a while. We discussed that she will need therapy which is scheduled to start on Saturday Personal History Red flag PMH: none Pain Pain level (0-10): 6 Pain duration: 3 WEEKS Pain location: anterior Pain quality: dull and aching Pain timing: increases with activity Associated signs & symptoms: none Ambulatory data Ambulatory device: walker Walking distance (minutes): 0 Treatments Number of previous injections: 0 Improvement with previous injections: No Number of Physical Therapy sessions: 0 Improvement with PT: No Improvement with NSAIDS: n/a Review of Systems Review of Systems: All systems negative unless otherwise noted in HPI.
== END 2025-06-08 10:40 | disposition home or self-care (01) ==
LOC: HODSRG 10:00
PROVIDERS: Supervising Provider Orthopaedic Surgery Adult Reconstructive Orthopaedic Surgery; Visit Provider Orthopaedic Surgery Adult Reconstructive Orthopaedic Surgery
DX: M17.12 Unilateral primary osteoarthritis, left knee (principal); M25.562 Pain in left knee; Z86.73 Personal history of transient ischemic attack (TIA), and cerebral infarction without residual deficits; I10 Essential (primary) hypertension; E78.00 Pure hypercholesterolemia, unspecified; E11.9 Type 2 diabetes mellitus without complications; E03.9 Hypothyroidism, unspecified
CPT/HCPCS: 99213; G0463

== ENCOUNTER → 2025-06-16 | Outpatient (CLI) | payer MEDICARE, MEDICAID, SELFPAY ==
--- NOTE | 2025-06-16 17:00 | XR_ITS ---
Examination: MRI left ankle, without contrast Date and time of exam: June 16, 2025, 1704 hrs. Indications: Patient fell 6 months ago with injury to the ankle, persistent lateral left-sided ankle pain, history fifth metatarsal fracture, diagnosis peroneal tendinitis Technique: Multiple axial sagittal and coronal images of the left ankle have been obtained with the Siemens high-resolution 1.5 Carla MRI scanner. Images obtained include T2-weighted fat-suppressed sagittal sections, TR 3500, TE 46, T2 weighted coronal fat suppressed images, TR 3050, TE 84, T2-weighted transverse fat suppressed images, TR 3260, TE 63, proton density transverse images, TR 4720 TE 46, and T1 weighted coronal images, TR 560, TE 13. Findings: Fracture base fifth metatarsal, healed No acute fracture Mild biconvex thickening of the Achilles tendon Mild plantar fasciitis Mild sinus Tarsi syndrome Mild tendinitis flexor digitorum, flexor hallucis longus, peroneus longus and brevis Anterior posterior inferior tibiofibular ligaments intact Mild strain posterior talar fibular ligament and anterior talofibular ligament Extensor tendons intact Dome the talus intact No avascular necrosis Moderate narrowing tibiotalar joint Impression: Mild Achilles tendinosis Mild plantar fasciitis Healed fracture base fifth metatarsal Mild tendinitis flexor digitorum, flexor hallucis longus, peroneus longus and brevis Mild strain anterior posterior talar fibular ligaments
== END | disposition home or self-care (01) ==
LOC: SMRI 16:27
PROVIDERS: PCP Nurse Practitioner Family; Referring Provider Podiatrist; Visit Provider Podiatrist
DX: M72.2 Plantar fascial fibromatosis (principal); M24.272 Disorder of ligament, left ankle; S99.912S Unspecified injury of left ankle, sequela; W19.XXXS Unspecified fall, sequela
CPT/HCPCS: 73721

== ENCOUNTER → 2025-08-20 | Outpatient (CLI) | payer MEDICARE, MEDICAID, SELFPAY ==
--- NOTE | 2025-08-20 15:15 | XR_ITS ---
Examination: MRI brain without intravenous contrast. Date and time of exam: August 20, 2025, 1614 hours INDICATIONS: Headaches dizziness beginning 3 months ago, history of stroke May 20, 2025 with large acute hemorrhage in the posterior left parietal lobe on CT brain scan 05/20/2025 Technique: Multiple axial and sagittal images of the brain obtained. Siemens high-resolution 1.5 Carla short bore scanners utilized. Sagittal sections, T1-weighted, TR 500, TE 14, are performed. Axial sections proton-density and T2-weighted have been obtained. Inversion recovery axial images, TR 9, 260, TE 111, TI 2500. Diffusion weighted images, axial sections, TR 4800, TE 128, B value 1000 Axial sections, ADC map, TR 4800, TE 128 Findings: Enlargement of the sella turcica is not present. The optic chiasm and infundibular are not remarkable. Prepontine and interpeduncular cisterns are not enlarged. There is no localized enlargement of the medulla or jose luis. Fourth ventricle and cerebellar tonsils appear normal in position. No subacute area of hemorrhage density is seen. Mass in the cerebellopontine angle region is not evident. Globes symmetrical. Orbital musculature including medial lateral rectus muscles do not exhibit abnormality. Diffusion-weighted images demonstrate no focus of restricted diffusion. Increased white matter signal evident, with old infarct left posterior parietal lobe Mass effect upon the ventricular system is not identified. Impression: Negative for acute hemorrhage mass effect or midline shift No acute infarct Large old infarct left posterior parietal lobe
== END | disposition home or self-care (01) ==
LOC: SMRI 14:54
PROVIDERS: PCP Psychiatry & Neurology Neurology; Referring Provider Psychiatry & Neurology Neurology; Visit Provider Psychiatry & Neurology Neurology
DX: R51.9 Headache, unspecified (principal); R42 Dizziness and giddiness; Z86.73 Personal history of transient ischemic attack (TIA), and cerebral infarction without residual deficits
CPT/HCPCS: 70551

== ENCOUNTER 2025-09-14 09:04 | Outpatient (AMB) | payer MEDICARE, MEDICAID, SELFPAY ==
[2025-09-14 09:33] VITALS: BP 106/72; PULSE 75; RESP 18; TEMP 36.2; O2SAT 97; BMI 22.4
--- NOTE | 2025-09-14 09:33 | ORTHONT_ITS ---
Vital signs 09/14/25 09:33 Height 1.57 m Height Method Stated Weight 55.14 kg Weight Measurement Method Standing Scale BMI 22.4 BP 106/72 Blood Pressure Source Automatic Cuff Blood Pressure Location Right Upper Arm Position Sitting Respiration 18 Pulse 75 Pulse Source Monitor Temp 97.2 F Temp Source Temporal Artery Scan Pulse Oximetry (%) 97 Oxygen Delivery Method Room Air Med/Allergies Allergies & Medications Allergies No Known Allergies Allergy (Verified 09/14/25 09:33) Medication Reconciliation atorvastatin 20 mg tablet (Lipitor) 20 mg PO HS #0 tabs 08/28/16 [History Confirmed 09/14/25] sitagliptin phosphate 50 mg-metformin 1,000 mg tablet (Janumet) 1 tab PO BIDWM #0 tabs 08/28/16 [History Confirmed 09/14/25] folic acid 1 mg tablet 1 tab PO QDAY ##90 08/30/16 [History Confirmed 09/14/25] metoprolol tartrate 100 mg tablet 100 mg PO QDAY ##180 08/30/16 [History Confirmed 09/14/25] montelukast 10 mg tablet 10 mg PO QDAY ##90 08/30/16 [History Confirmed 09/14/25] levothyroxine 50 mcg tablet 50 mcg PO QDAY 06/20/20 [History Confirmed 09/14/25] albuterol sulfate 90 mcg/actuation aerosol inhaler (Ventolin HFA) 2 puff inhalation Q6H PRN sob 11/17/20 [History Confirmed 09/14/25] glipizide 10 mg tablet 10 mg PO BID 11/17/20 [History Confirmed 09/14/25] ferrous sulfate 325 mg (65 mg iron) tablet 325 mg PO BID 11/15/22 [History Confirmed 09/14/25] losartan 50 mg-hydrochlorothiazide 12.5 mg tablet 1 tab PO QDAY 11/15/22 [History Confirmed 09/14/25] meloxicam 7.5 mg tablet 7.5 mg PO QDAY #45 tabs 02/16/25 [Rx Confirmed 09/14/25] Exam Exam Patient is in no acute distress and is cooperative with the examination today. Breathing is nonlabored. Patient has a normal mood and affect. The patient has a gait that is [nonantalgic] Bilateral extremities were evaluated and demonstrates sensation intact to light touch. Palpable pedal pulses are present. No significant edema is present. Bilateral hips were examined. The patient has no pain with log roll of the hips. Internal rotation to 30 degrees and external rotation to 30 degrees is painless. Negative FADIR. Right knee was examined today. The right knee is in reasonable alignment. Range of motion from 0-120 degrees. Knee is stable to varus and valgus as well as AP translation with <5mm. Patient has a negative McMurrays. There is no pain with patellofemoral compression and no crepitus noted. The knee is nontender to palpation. Left knee was examined today. The left knee is in [neutral] alignment. Range of motion from [0-120] degrees. Knee is stable to varus and valgus as well as AP translation with <5mm. Patient has a [negative] McMurrays. There is [no] pain with patellofemoral compression and [no] crepitus noted. The knee is [nontender] to palpation [diffusely]. X-rays demonstrate minimal joint space narrowing osteoarthritis. The patient also has an MRI. This demonstrates moderate thinning of her cartilage. There is also degenerative meniscal tear Assessment and Plan Problem List (1) Unilateral primary osteoarthritis, left knee: Status: Acute Plan: Patient is a pleasant 68-year-old female with left knee pain and left knee osteoarthritis. now doing well with physical therapy. She has no pain right now and we will see her on an as-needed basis (2) Pain in left knee: Status: Acute Advanced Care Planning Discussion Advance care planning discussed with:: patient and child Office Procedures GNS Level of Care Nursing/Assessment Patient Status: Established Patient Nursing Assessment/Reassesment: Medication Reconciliation, Update PMH in EMR and Vital Signs Coordination of Care: Complex Care and Chronic Disease 1-5, Education Complex Pt/Fam, Consent,records obtained, informed consent, Results/Orders obtained and Staff clarify orders Special Needs: Language special needs Established Patient Charge Established Patient Point Assignment: 95 Established Patient Point Charge: EP Level 3 (80-115) MA Intake Visit Data Collection New Patient or Established: Established Patient (seen at [facility] [place] within 3 years) Reason for Visit:: 3 month follow up Sports Coordinator Required: Yes PCP or OBGYN visit in last 3 months: Yes Hx Now: No Do You Feel Safe at Home: Yes Authorities Contacted: N/A Questionairres Past Medical History Past Medical History Have you ever been diagnosed with any of the following: Neurological Problems Seizures: No Cardiology Problems Hypercholesterolemia: Yes Congestive Heart Failure: No Hypertension: Yes Respiratory Problems Chronic Obstructive Pulmonary Disease (COPD): No Asthma: No Emphysema: No Pneumonia: Yes Tuberculosis: No Smoking: No Smoking Exposure: No Genital/Urinary Problems Renal Disease: No Musculoskeletal Problems Arthritis: Yes Endocrine Problems Diabetes Mellitus Type 1: No Diabetes Mellitus Type 2: Yes Hypothyroidism: Yes Blood Problems Anemia: Yes Other Problems Falls: Yes Blood Transfusions: No Anesthesia Reactions: No Cancer: No Surgical History Hysterectomy: Yes (97' WITH ONE OVARY REMOVAL) Subjective Visit Visit for: follow up visit and knee Immunization / Flu Flu Vaccine in the Last 12 Months: No Flu Vaccine Exclusion Criteria: No Exclusion Criteria History of Present Illness Chief complaint: 3 month follow up Danielle is a 61-year-old female with left knee pain. She is doing well with therapy and has minimal pain at this time. We will see her back on an as-needed basis. She reports that a lot of the pain has improved with therapy and since she went out of the boot Personal History Red flag PMH: none BMI Counceling provided: No Pain Pain level (0-10): 3 Pain duration: all day Pain location: anterior Pain quality: dull and aching Pain timing: increases with activity Associated signs & symptoms: none Ambulatory data Ambulatory device: walker Walking distance (minutes): 0 Treatments Number of previous injections: 0 Improvement with previous injections: No Number of Physical Therapy sessions: 0 Improvement with PT: No Improvement with NSAIDS: n/a Review of Systems Review of Systems: All systems negative unless otherwise noted in HPI.
== END 2025-09-14 10:04 | disposition home or self-care (01) ==
LOC: HODSRG 09:04
PROVIDERS: Supervising Provider Orthopaedic Surgery Adult Reconstructive Orthopaedic Surgery; Visit Provider Orthopaedic Surgery Adult Reconstructive Orthopaedic Surgery
DX: M17.12 Unilateral primary osteoarthritis, left knee (principal); M25.562 Pain in left knee; I10 Essential (primary) hypertension; E11.9 Type 2 diabetes mellitus without complications; Z79.84 Long term (current) use of oral hypoglycemic drugs
CPT/HCPCS: 99213; G0463